=== PATIENT | female | born 1980 | race African-American/Black ===

== ENCOUNTER 2019-06-18 23:15 | Inpatient (IN) | payer MEDICARE, MEDICAID ==
[2019-06-18] MEDS ORDERED: Furosemide 40 MG/4 ML VIAL ONE (23:51)
--- NOTE | 2019-06-18 23:51 | RAD ---
Frontal radiograph chest: 06/18/2019 COMPARISON: None HISTORY: Shortness of breath FINDINGS: Midline sternotomy wires and evidence of prior mechanical valve surgery noted. No pneumotho rax area pulmonary vascular congestion. Hazy perihilar increased linear interstitial density. Mild bibasilar airspace disease with small bilateral pleural effusions suspected. IMPRESSION: Findings suggesting pulmonary edema. Recommend follow-up imaging following treatment with PA and lateral views.
[2019-06-18 23:53] LABS: Hemoglobin 13.3 g/dL (12.0-16.0); Mean Corpuscular HGB CONC 29.9 g/dL (32.0-36.0); Mean Corpuscular Hemoglobin 26.9 pg (27.0-31.0); Mean Corpuscular Volume 90.1 fL (78.0-98.0); Mean Platelet Volume 10.4 fL (7.4-10.4); Platelet Count 244 thou/uL (130-400); RBC Distribution Width 20.9 % (11.5-14.5); Red Blood Cell (RBC) Count 4.94 mill/uL (4.20-5.40); White Blood Cell (WBC) Count 8.9 thou/uL (4.8-10.8)
[2019-06-19 00:02] LABS: INR-International Normal Ratio 1.4; PTT 29.7 SEC (22.9-36.1); Prothrombin Time 17.4 SEC (12.0-14.7)
[2019-06-19 00:17] LABS: ALT (SGPT) 42 U/L (8-55); AST (SGOT) 52 U/L (5-34); Albumin 4.3 g/dL (3.5-5.0); Alkaline Phosphatase 143 U/L (40-150); Anion Gap 16 mmol/L (10-20); BUN (Urea Nitrogen) 13 mg/dL (7.0-18.7); Bilirubin, Total 1.3 mg/dL (0.2-1.2); Calc. Creatinine Clearance 0 mL/min (70-130); Calcium 9.5 mg/dL (7.8-10.44); Carbon Dioxide 34 mmol/L (22-29); Chloride 93 mmol/L (98-107); Estimated GFR-MDRD 77; Glucose 104 mg/dL (70-105); Lipase 90 U/L (8-78); Potassium 3.5 mmol/L (3.5-5.1); Protein, Total 8.3 g/dL (6.0-8.3); Sodium 139 mmol/L (136-145)
[2019-06-19] MEDS ORDERED: Acetaminophen 500 MG TAB ONE (00:18)
[2019-06-19 00:19] LABS: #Eosinphils 0.2 thou/uL (0.0-0.7); #Lymphocytes 1.7 thou/uL (1.20-3.40); #Monocytes 0.9 thou/uL (0.11-0.59); %Basophils 0.3 % (0.0-1.0); %Eosinophils 1.7 % (0.0-10.0); %Lymphocytes 19.5 % (21.0-51.0); %Monocytes 10.3 % (0.0-10.0); %Neutrophils 68.1 % (42.0-75.0); Anisocytosis SLIGHT = 6-15 cells (100X) (0-5/hpf); Hypochromia SLIGHT = 6-15 cells (100X) (0-5/hpf); MDiff Complete? YES; Platelet Morphology Comment Appears Adequate; Polychromasia SLIGHT = 2-3 cells (100X) (0-2/hpf)
[2019-06-19 02:23] VITALS: BMI 36.5
[2019-06-19] MEDS ORDERED: Morphine 2 MG/ML SYRINGE SLOW IVP SCH (02:45)
[2019-06-19 03:20] LABS: Troponin I 0.011 ng/mL (< 0.028)
[2019-06-19] MEDS: Sodium Chloride 0.9% 10 ML ONE ×4 (04:16→22:06)
[2019-06-19 06:59] LABS: Troponin I 0.012 ng/mL (< 0.028)
[2019-06-19] MEDS ORDERED: Albuterol Sulfate 2.5 mg/3 ml Neb NEB PRN (10:24)
[2019-06-19] MEDS ORDERED: Furosemide 40 MG/4 ML VIAL SLOW IVP SCH ×2 (10:30→14:00)
[2019-06-19] MEDS ORDERED: Ketorolac Tromethamine 30 MG/ML VIAL IVP SCH ×2 (11:00→21:45)
[2019-06-19] MEDS ORDERED: Ondansetron ODT 4 MG TAB PO PRN (11:14)
[2019-06-19] MEDS ORDERED: Acetaminophen 500 MG TAB PO PRN (11:14)
[2019-06-19] MEDS ORDERED: Ondansetron PF 4 MG/2 ML Vial IVP PRN (11:14)
[2019-06-19] MEDS ORDERED: hydrALAZINE 20 MG/ML VIAL SLOW IVP PRN (11:14)
[2019-06-19] MEDS ORDERED: cloNIDine 0.1 MG TAB PO PRN (11:14)
[2019-06-19] MEDS ORDERED: predniSONE 20 MG TAB PO SCH (11:15)
[2019-06-19] MEDS ORDERED: Enoxaparin Sodium 120 MG/0.8 ML SYRINGE SC SCH ×2 (11:45→21:00)
[2019-06-19 12:16] LABS: Digoxin Less than 0.15 ng/mL (0.8-2.0)
--- NOTE | 2019-06-19 12:45 | HP ---
PRIMARY CARE PROVIDER: Destiny Roberson. CHIEF COMPLAINT: Shortness of breath. HISTORY OF PRESENT ILLNESS: This is a 39-year-old female, who presents to [facility] complaining of persistent shortness of breath with increasing lower extremity edema over the last 48 hours. The patient admits to longstanding history of shortness of breath, using home oxygen up to 3 L/minute by nasal cannula intermittently. The patient admits to previous mitral and tricuspid valve replacement on chronic Coumadin therapy and recent admission to the hospital in [place], [place] for CHF exacerbation. The patient states she had to leave the [facility] against medical advice to attend to a family emergency in the [place], [place] area, where she has been over the last 48 hours. While attending her family member, the patient became increasingly short of breath and became concerned, presenting to the emergency room for evaluation. The patient does states she is on chronic Coumadin and has been managed by her primary care provider and civil engineering project designer [facility] the [facility] in [place]. The patient does continue to smoke up to half a pack of cigarettes daily, but states she has been compliant with her medication regimen. The patient has noted increased swelling of her lower extremities, left greater than right and having difficulty laying flat without becoming increasingly short of breath. The patient denied any documented fever, chills, or exposure history. In the emergency room, the patient underwent general evaluation including chest imaging showing bilateral pulmonary edema. The patient received Lasix 40 mg IV push x1 dose in addition to acetaminophen. PAST MEDICAL HISTORY: 1. Chronic anticoagulation with Coumadin. 2. Chronic hypoxic respiratory failure, on oxygen supplementation at 3 L/minute by nasal cannula. 3. Tobacco abuse. 4. Status post a porcine mitral and tricuspid valve replacement, on chronic anticoagulation with Coumadin. 5. Congenital cardiac disease. 6. History of right lung collapse. 7. Chronic obstructive pulmonary disease. PAST SURGICAL HISTORY: 1. Status post porcine mitral and tricuspid valve replacement. 2. Status post open-heart surgery as a child. CURRENT MEDICATIONS: 1. Ventolin 3 mL nebulized q.6 hours p.r.n. 2. BuSpar 5 mg p.o. daily. 3. Digoxin 125 mcg p.o. daily. 4. Lasix 40 mg p.o. b.i.d. 5. Spironolactone 50 mg p.o. daily. 6. Coumadin 15 mg p.o. daily. ALLERGIES: TO PENICILLIN, SULFA, AND BACTRIM. FAMILY HISTORY: Positive for hypertension. SOCIAL HISTORY: The patient resides in [place], [place]. Disabled. Smokes up to half a pack of cigarettes daily. No alcohol or illicit drug use. REVIEW OF SYSTEMS: CONSTITUTIONAL: Negative for weight loss or gain, ability to conduct usual activities. SKIN: Negative for rash, itching. EYES: Negative for double vision, pain. ENT/MOUTH: Negative for nose bleeding, neck stiffness, pain, tenderness. CARDIOVASCULAR: Negative for palpitations, dyspnea on exertion, orthopnea. RESPIRATORY: Negative for shortness of breath, wheezing, cough, hemoptysis, fever or night sweats. GASTROINTESTINAL: Negative for poor appetite, abdominal pain, heartburn, nausea, vomiting, constipation, or diarrhea. GENITOURINARY: Negative for urgency, frequency, dysuria, nocturia. MUSCULOSKELETAL: Negative for pain, swelling. NEUROLOGIC/PSYCHIATRIC: Negative for anxiety, depression. ALLERGY/IMMUNOLOGIC: Negative for skin rash, bleeding tendency. Otherwise, negative except as stated per HPI. PHYSICAL EXAMINATION: VITAL SIGNS: On admission, blood pressure 109/65, pulse 103, respiratory rate 20, temperature 98.3 degrees Fahrenheit, and O2 saturation 96% on 3 L/minute by nasal cannula. GENERAL APPEARANCE: This is a 39-year-old female, alert and oriented x3, pleasant, in mild respiratory distress. HEENT: Pupils are equal, round, and reactive to light and accommodation. Extraocular muscles are intact. No scleral icterus. No conjunctival injection. Nares patent. OP is clear. Teeth in fair repair. NECK: Supple. No cervical adenopathy. No thyromegaly. No carotid bruits. No JVD appreciated. Cervical spine with full active and passive range of motion. No meningeal signs noted. CHEST: Diminished breath sounds bilaterally. Occasional rhonchi in the basilar sections. CARDIOVASCULAR: S1 and S2 with cardiac murmurs consistent with prior valvular replacement. ABDOMEN: Rounded, soft, nontender, and nondistended. Bowel sounds are positive in all 4 quadrants. There is no hepatosplenomegaly. No abdominal bruits. No rebound or guarding appreciated. EXTREMITIES: Pitting edema to the knees bilaterally, left greater than right. Pulses palpable distally at the dorsalis pedis, posterior tibial, and popliteal arteries bilaterally. Capillary refill less than 2 seconds. NEUROLOGIC: Cranial nerves II through XII are grossly intact. No focal or lateralizing signs appreciated. PERTINENT LABORATORY AND X-RAY FINDINGS: Sodium 139, potassium 3.5, chloride 93, CO2 of 34, BUN 13, creatinine 0.82, glucose 104, calcium 9.5, total bilirubin 1.3, AST 52, ALT 42, and alkaline phosphatase 143. Troponin I negative x3. BNP 47. Lipase 90. CBC showed a white blood cell count of 8.9, hemoglobin 13, hematocrit 45, and platelet count 244 with 68% neutrophils. PT 17.4, INR 1.4, and PTT 29.7. Portable chest x-ray dated 06/18/2019, showed bilateral pulmonary edema. EKG dated 06/18/2019 by my interpretation shows sinus tachycardia with heart rates in the low 110s. Normal R-wave progression noted in the precordial leads. Right bundle-branch block pattern noted. No acute ST-T wave changes appreciated. ASSESSMENT AND PLAN: 1. Acute on chronic congestive heart failure exacerbation. Exact type is unknown. We will continue Lasix 40 mg IV b.i.d. Monitor daily weights and I's and O's. Check 2D transthoracic echocardiogram for valvular assessment in addition to ejection fraction. 2. Acute on chronic hypoxic respiratory failure. Multifactorial, given the patient's heart failure exacerbation in addition to chronic obstructive pulmonary disease. Continue oxygen supplementation to maintain O2 saturations greater than or equal to 88%. See chronic obstructive pulmonary disease exacerbation below. 3. Chronic obstructive pulmonary disease exacerbation. Continue pulmonary supportive management. Prednisone 40 mg daily. DuoNeb q.4 hours. Add Pulmicort 0.5 mg inhaled b.i.d. 4. Chronic anticoagulation with subtherapeutic INR. Initiate Lovenox 110 mg subcutaneously b.i.d. until INR is therapeutic at 2.5 or greater. Resume Coumadin of 15 mg p.o. daily. 5. Tobacco abuse. We will offer smoking cessation resources prior to discharge. 6. Prophylaxis. Hold SCDs due to lower extremity edema. Pepcid 20 mg p.o. b.i.d. 7. Code status is full. Surrogate medical decision maker is the patient's mother. Job ID: [id number]
--- NOTE | 2019-06-19 13:26 | ULT ---
BILATERAL LOWER EXTREMITY VENOUS DUPLEX ULTRASOUND INCLUDING COLOR AND SPECTRAL DOPPLER IMAGING: Date: 06/19/19 HISTORY: Lower extremity edema. TECHNIQUE: Exam performed from groin to ankle including visualized greater saphenous, common femoral, superficia l femoral, profunda femoral, popliteal, trifurcation, and posterior tibial vein regions. FINDINGS: Phasic flow noted at all levels with normal compressibility and normal augmentation. No intraluminal thrombus. Fairly prominent superficial veins are noted. IMPRESSION: No evidence for deep venous thrombosis. POS: TPC
[2019-06-19] MEDS ORDERED: Warfarin Sodium 5 MG TAB PO SCH (17:00)
[2019-06-19] MEDS ORDERED: Budesonide 0.5 MG/2 ML NEB INH SCH (18:30)
[2019-06-19 18:39] LABS: Platelet Count 228 thou/uL (130-400)
[2019-06-20] MEDS ORDERED: Ketorolac Tromethamine 30 MG/ML VIAL IVP PRN (04:00)
[2019-06-20 04:01] VITALS: BP 106/54; TEMP 98.4
[2019-06-20] MEDS ORDERED: predniSONE 20 MG TAB PO SCH (08:00)
[2019-06-20] MEDS ORDERED: Digoxin 0.125 MG TAB PO SCH (09:00)
[2019-06-20] MEDS ORDERED: busPIRone HCl 5 MG TAB PO SCH (09:00)
[2019-06-20] MEDS ORDERED: Spironolactone 25 MG TAB PO SCH (09:00)
--- NOTE | 2019-06-21 01:41 | DIS ---
DATE OF ADMISSION: 06/19/2019 DATE OF DISCHARGE: 06/20/2019 DISCHARGE DIAGNOSES: 1. Acute on chronic congestive heart failure exacerbation with ejection fraction of 60% to 65%. 2. Acute on chronic hypoxic respiratory failure, multifactorial. 3. Chronic obstructive pulmonary disease exacerbation, mild. 4. Chronic anticoagulation with subtherapeutic INR. 5. Tobacco abuse ongoing. 6. Status post porcine mitral and tricuspid valve replacement with chronic anticoagulation with Coumadin. CONSULTATIONS: None. PERTINENT LAB AND X-RAY FINDINGS: Total bilirubin 1.3, AST 52, ALT of 42. Troponin I negative x3. BNP 47. Lipase 90. CBC showed a white blood cell count of 8.9, hemoglobin 13, hematocrit 45, platelet count 244. PT 17.4, INR 1.4. Digoxin level less than 0.15. Portable chest x-ray dated 06/18/2019, showed pulmonary edema bilaterally. Bilateral lower extremity venous Doppler study dated 06/19/2019, showed no evidence for DVT. 2D transthoracic echocardiogram dated 06/19/2019, showed ejection fraction of 60% to 65%. Mildly enlarged right ventricular cavity. Moderate right atrial enlargement. Mechanical prosthetic mitral and tricuspid valve noted. HOSPITAL COURSE: The patient was initially admitted to the telemetry unit after presenting with shortness of breath in the context of known chronic heart failure, as well as chronic obstructive pulmonary disease with oxygen requirement of up to 3 L/minute by nasal cannula on an outpatient basis. The patient underwent evaluation with chest imaging confirming pulmonary edema. The patient received IV Lasix in addition to bronchodilator therapy, prednisone, and oxygen supplementation. The patient clinically stabilized with supportive management, however, decided to leave the hospital without warning and against medical advice on 06/20/2019. Job ID: [id number]
--- NOTE | 2019-06-21 04:02 | PQF ---
[employer] Crystal Reports Winform ViewerIRA BURLESON CHARLES DO [id number] [facility]-295 [id number] CLINICAL DOCUMENTATION CLARIFICATION FORM: POST DISCHARGE Addendum to original discharge summary date: ____ Late entry note date: __ DATE: 06/21/19 ATTN: Dr. Kee Crawford Please exercise your independent, professional judgment in responding to the clarification form. Clinical indicators are provided on the bottom of this form for your review Can you please further specify the acuity of CHF? Please check appropriate box(s): HEART FAILURE: A. TYPE: [ ] Systolic / HFrEF [ x ] Diastolic / HFpEF [ ] Combined Systolic / Diastolic [ ] Other diagnosis please specify [ ] Unable to determine For continuity of documentation, please document condition throughout progress notes and discharge summary. Thank You. CLINICAL INDICATORS - H and P 06/19/19 pg.1 "In the emergency room the patient underwent general evaluation including chest imaging showing bilateral pulmonary edema" H and P 06/19/19 pg.3- "Acute on chronic congestive hearth failure exacerbation. Exact type is unknown" H and P 06/19 pg.2 - "Pitting edema" Laboratory- 06/18- "BNP 47.0" Echocardiogram 06/19 pg.1- "Ejection fraction is visualized estimated at 60-65%" RISKS: Acute on chronic hypoxic respiratory failure- H and P pg.3 Chronic obstructive pulmonary disease- H and P pg.4 Tobacco abuse- H and P pg.4 History of congenital cardiac disease- H and P pg.1 TREATMENTS: Oxygen supplementation- H and P pg.3 MARK- Echocardiogram 06/19 Chest X-ray 06/18 Furosemide (Lasix) 40mg IV- JAN 19 (This form is maintained as a part of the permanent medical record) 2014 [employer] All Rights Reserved [email or web address] [not provided] MTDD
== END 2019-06-20 04:41 | disposition left against medical advice (07) | DRG 291 ==
LOC: ERS 23:15 → 2NO 06-19 01:09
PROVIDERS: ADMIT Hospitalist; ATTEND Hospitalist
DX: I50.33 Acute on chronic diastolic (congestive) heart failure (principal); J96.21 Acute and chronic respiratory failure with hypoxia; J44.1 Chronic obstructive pulmonary disease with (acute) exacerbation; F41.9 Anxiety disorder, unspecified; F17.210 Nicotine dependence, cigarettes, uncomplicated; Z53.21 Procedure and treatment not carried out due to patient leaving prior to being seen by health care provider; Z88.1 Allergy status to other antibiotic agents; Z88.0 Allergy status to penicillin; Z88.2 Allergy status to sulfonamides; Z79.01 Long term (current) use of anticoagulants; Z79.899 Other long term (current) drug therapy; Z99.81 Dependence on supplemental oxygen; Z95.2 Presence of prosthetic heart valve; Z79.51 Long term (current) use of inhaled steroids
CPT/HCPCS: 36415; 71045; 80053; 80162; 83690; 83880; 84484; 85014; 85018; 85025; 85049; 85610; 85730; 90471; 90732; 93005; 93306; 93970; 94760; 96374; G0009; J1650; J1885; J1940; J2270; J7512; J7620; J7626